=== PATIENT | female | born 1945 | race Caucasian/White ===

== ENCOUNTER 2017-03-07 06:38 | Day surgery (SDC) | payer OTHER ==
[~2017-03-07] VITALS: Ht 167.6 cm; Wt 74.8 kg
[~2017-03-07 06:38] MED LIST: ASPI-676 PO; ATOR20TA17 PO; COL250 PO; LOSA1TAB9 PO
[2017-03-07] MEDS ORDERED: AMLODIPINE PO (08:36)
[2017-03-07] MEDS ORDERED: VALSARTAN PO (08:36)
[2017-03-07 08:52] VITALS: BP 124/58; PULSE 75; RESP 18
[2017-03-07] MEDS ORDERED: MIDAZOLAM 1 MG/ML 2 ML INJ ONE (09:37)
[2017-03-07] MEDS ORDERED: FENTAnyl 50 MCG/ML VIAL ONE (09:37)
--- NOTE | 2017-03-07 09:39 | OPPN ---
Date/Time of Note Date/Time of Note DATE: 03/07/17 TIME: 09:38 Operative Report Preoperative Diagnosis Screening Postoperative Diagnosis Small right colon polyp was removed Diverticulosis of the colon Internal hemorrhoids Operation/Procedure Performed Colonoscopy and biopsy Surgeon see signature line home health assistant None Anesthesia: moderate sedation Estimated blood loss: none Transfusion Required none Specimen Colon polyp Grafts/Implants none Complications none GISELA HERNANDEZ MD Mar 07, 2017 09:39
[2017-03-07 09:50] VITALS: BP 101/64; RESP 14
[2017-03-07 10:19] VITALS: BP 107/69; RESP 14
--- NOTE | 2017-03-07 11:24 | GILP ---
DATE OF PROCEDURE: NAME OF PROCEDURES: Colonoscopy and biopsy. SURGEON: Gisela Hernandez MD PREOPERATIVE DIAGNOSIS: Screening colonoscopy. POSTOPERATIVE DIAGNOSES 1. Colonoscopy all the way to the cecum. 2. Small right colon polyp was removed using the biopsy forceps. 3. Diverticulosis of the colon. 4. Internal hemorrhoids. INDICATION FOR THE PROCEDURE: Ms. Cherelle Braxton is a 71-year-old female patient who was scheduled for screening colonoscopy. The procedure and possible complications are well explained to the patient. The patient understood and consented to the procedure. DESCRIPTION OF PROCEDURE: Under the influence of fentanyl and Versed, the colonoscope was carefully introduced in the rectum and under direct vision, it was advanced all the way to the cecum. FINDINGS: The patient had a small right colon polyp and it was removed using the biopsy forceps. S he had diverticulosis of the colon and internal hemorrhoids. She tolerated the procedure very well and there was no complication from the procedure. At the end of the procedures, she was awake with stable vital signs and she was discharged home to the care of her family. IMPRESSION: Please see postoperative diagnosis. PLAN: Next screening colonoscopy in 5 years. Dictated By: GISELA STANTON/BALDO Conf#: [id number] DID#: [id number] CC: GISELA HERNANDEZ MD;*EndCC*
== END 2017-03-07 09:38 | disposition home or self-care (01) ==
LOC: GIL 06:38
PROVIDERS: ATTEND Internal Medicine Gastroenterology
DX: Z12.11 Encounter for screening for malignant neoplasm of colon (principal); K63.5 Polyp of colon; K57.90 Diverticulosis of intestine, part unspecified, without perforation or abscess without bleeding; K64.8 Other hemorrhoids; I10 Essential (primary) hypertension
CPT/HCPCS: 45380; 88305; J2250; J3010

== ENCOUNTER 2019-02-22 10:43 | Emergency (ER) | payer OTHER ==
[~2019-02-22] VITALS: Ht 162.6 cm; Wt 70.3 kg
[~2019-02-22 10:43] MED LIST changes: +ACET325T33 PO; +AMLO-147 PO; +AMLODIPINE PO; -ASPI-676 PO; -ATOR20TA17 PO; +CEPH-443 PO; +CIPR500T4 PO; -COL250 PO; +IBUP-1542 PO; +IBUP-1561 PO; -LOSA1TAB9 PO; +LOSA50TA14 PO; +NAPR-985 PO; +VALSARTAN PO
[2019-02-22 10:47] VITALS: Ht 162.6 cm; Wt 70.3 kg
[2019-02-22] MEDS ORDERED: CEFEPIME 2GM/50 ML (PMX) 50 ML IVPB STA (11:52)
[2019-02-22] MEDS ORDERED: SODIUM CHLORIDE 0.9% 1L BAG IV* STA (11:52)
[2019-02-22] MEDS ORDERED: ACETAMINOPHEN 325 MG TAB PO STA (11:52)
[2019-02-22] MEDS ORDERED: VANCOMYCIN 1 GM (PMX) 250 ML IVPB ONE (12:00)
[2019-02-22 15:16] VITALS: BP 115/63; PULSE 87; RESP 20
[2019-02-22] MEDS ORDERED: FAMOTIDINE 20 MG INJ IV ONE (15:30)
== END 2019-02-22 15:32 | disposition home or self-care (01) ==
LOC: E/R 10:43
DX: J06.9 Acute upper respiratory infection, unspecified (principal); I10 Essential (primary) hypertension; R40.2142 Coma scale, eyes open, spontaneous, at arrival to emergency department; R40.2252 Coma scale, best verbal response, oriented, at arrival to emergency department; R40.2362 Coma scale, best motor response, obeys commands, at arrival to emergency department; R10.9 Unspecified abdominal pain
CPT/HCPCS: 36415; 71045; 80053; 81003; 83605; 84484; 85025; 85610; 85730; 87040; 87086; 87400; 93005; 96374; 96375; 99285; J0692; J3370; J7030

== ENCOUNTER 2019-02-26 12:05 | Emergency (ER) | payer OTHER ==
[~2019-02-26] VITALS: Wt 79.0 kg
[~2019-02-26 12:05] MED LIST changes: -AMLODIPINE PO; -CEPH-443 PO; -IBUP-1561 PO; -NAPR-985 PO; -VALSARTAN PO
[2019-02-26 12:35] VITALS: BP 132/65; PULSE 75; RESP 18
[2019-02-26] MEDS ORDERED: CIPROFLOXACIN 500 MG TAB PO ONE (13:30)
== END 2019-02-26 13:23 | disposition home or self-care (01) ==
LOC: E/R 12:05
DX: N30.00 Acute cystitis without hematuria (principal); I10 Essential (primary) hypertension
CPT/HCPCS: 99283